=== PATIENT | male | born 1990 | race Caucasian/White ===

== ENCOUNTER 2019-07-04 12:54 | Emergency (ER) | payer BC ==
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
[2019-07-04 15:33] VITALS: TEMP 98.6
[2019-07-04 15:34] VITALS: BP 118/78; O2SAT 96
== END 2019-07-04 15:23 | disposition home or self-care (01) ==
LOC: ER 12:54
DX: S16.1XXA Strain of muscle, fascia and tendon at neck level, initial encounter (principal); S46.012A Strain of muscle(s) and tendon(s) of the rotator cuff of left shoulder, initial encounter; V49.40XA Driver injured in collision with unspecified motor vehicles in traffic accident, initial encounter; F17.210 Nicotine dependence, cigarettes, uncomplicated
CPT/HCPCS: 72040; 72070; 99284